=== PATIENT | male | born 1945 | race Caucasian/White ===

== ENCOUNTER → 2016-12-11 | Outpatient (CLI) | payer MEDICARE, OTHER ==
[~2016-12-11] MED LIST: ASPIRIN325 MG PO; IRBESARTAN150 MG PO; LEVOTHROID(SY175 MCG PO; NITROSTAT0.4 MG SL; PRAVACHOL40 MG PO; PRILOSEC20 MG PO; VITAMIN D1000 UNIT PO
[2016-12-11 13:14] LABS: BASOPHIL # 0.1 K/uL (0.0-0.2); BASOPHIL % 0.9 %; EOSINOPHIL # 0.2 K/uL (0.0-0.5); EOSINOPHIL % 2.7 %; HEMATOCRIT 45.1 % (37.0-53.0); HEMOGLOBIN 14.7 g/dL (11.0-16.0); IMMATURE GRANULOCYTE # 0.1 K/uL (0.0-0.3); IMMATURE GRANULOCYTE % 1.6 %; LYMPHOCYTE # 2.7 K/uL (0.8-4.0); LYMPHOCYTE % 34.8 %; MCHC 32.6 gm/dL (32.0-36.5); MONOCYTE # 0.6 K/uL (0.0-1.0); MONOCYTE % 7.2 %; MPV 9.2 fl (9.4-12.4); NEUTROPHIL % 52.8 %; NRBC % 0 /100WBC (0-0.00); PLATELET COUNT 199 K/uL (150-450); WBC 7.6 K/uL (4.0-11.0)
[2016-12-11 13:31] LABS: ALBUMIN 3.7 gm/dL (3.5-5.0); ANION GAP 10.5 (10.0-19.0); BLOOD UREA NITROGEN 11 mg/dL (6-24); CALCIUM 8.8 mg/dL (8.5-10.5); CHLORIDE 111 mMol/L (96-110); CO2 26 mMol/L (22-32); CREATININE 0.9 mg/dL (0.6-1.3); ESTIMATED GFR (MDRD EQUATION) > 60; PHOSPHORUS 2.5 mg/dL (2.5-4.9); POTASSIUM 4.5 mMol/L (3.7-5.1); SODIUM 143 mMol/L (135-145)
== END | disposition disaster alternative care site (69) ==
LOC: LCNC 12:49
PROVIDERS: Internal Medicine Interventional Cardiology
DX: R53.82 Chronic fatigue, unspecified (principal); I25.10 Atherosclerotic heart disease of native coronary artery without angina pectoris

== ENCOUNTER 2016-12-14 08:16 | Outpatient (CLI) | payer MEDICARE, OTHER ==
[~2016-12-14] VITALS: Ht 175.3 cm; Wt 126.0 kg
--- NOTE | ~2016-12-14 | CATH ---
Cardiac Diagnostic Report Demographics Patient Name KACY Starks Gender Male SR Date of 1945 Age 71 year(s) Patient Number [id number] Date of Study 12/14/2016 Visit Number [id number] Room Number G63[address] [place] [id number] Ht 175.26 cm Wt 128.8 kg Referring Cristal Sears Primary Physician Physician PA Performing Darcy Lea MD Secondary Physician Physician Diagnostic Darcy Lea MD Assisting Physician Physician Interventional Physician Supervisor [place] Physician Findings and Conclusions Diagnostic Findings and Conclusion 1 vessel CAD Diagnostic Recommendations Medical therapy. Risk factor modification. Procedure Description The patient was brought to the diagnostic cardiac catheterization-EP laboratory in the fasting, non-sedated state. Informed consent was obtained in the written and verbal form after the risks and benefits were explained. The patient had no further questions and agreed to proceed. The planned puncture-incision site(s) were shaved and prepped with ChloraPrep and draped in the usual sterile manner. Conscious sedation, supplemental oxygen, and pain control medications were delivered by a registered nurse under physician guidance. Surface ECG rhythm, blood pressure measurement, and pulse oximetry were monitored throughout the procedure. Arterial access. The access site was infiltrated with lidocaine. The vessel was entered with the Seldinger technique. A sheath was advanced into the vessel and used for catheter placement. Selective left coronary angiography. A catheter was advanced into the left coronary vessel ostium under Fluoroscopic guidance. Contrast was injected by hand. Images were obtained in multiple projections. Selective right coronary angiography. A catheter was advanced into the right coronary vessel ostium under fluoroscopic guidance. Contrast was injected by hand. Images were obtained in multiple projections. Left heart catheterization. A catheter was advanced across the aortic valve to the left ventricle under fluoroscopic guidance. Resting hemodynamics were obtained. Arterial artery hemostasis was achieved. The patient was transferred to a regular nursing floor via cart accompanied by a nurse. The patient left the laboratory in stable condition. Diagnostic Cath Status: Elective Procedure Procedure Type Diagnostic procedure:Angiography:, Coronary Angios /[facility] Indications: Positive nuclear perfusion study. The procedure was explained in detail to the patient. Risks, complications and alternative treatments were reviewed. Written consent was obtained. Medications Reviewed with Patient prior to Procedure. Angiographic Findings Dominance: Mixed Cardiac Arteries and Lesion Findings LMCA: Normal (0% Stenosis).Large. LAD: Normal (0% Stenosis).LAD large, patent stent, mid, distal normal. Diagonal medium, normal. LCx: Normal (0% Stenosis).Circumflex large normal. OM 1 and 2 small ok. OM 3 large Codominant PDA normal. RCA: RCA medium, minor plaque PL small ok Procedure Data Procedure Date Date: 12/14/2016Start: 10:35 AMEnd: 11:01 AM Entry Locations - Retrograde Percutaneous access was performed through the Right Femoral artery (Primary location). A 6 Fr sheath was inserted. Hemostasis was successfully obtained using Angio-Seal STS PLUS ([facility]). Closure Comments: deployed by prashant. Procedure Medications Order and Administration + + +-------+------+ !Time !Medication !Dosage !Route ! + + +-------+------+ !12/14/2016 10:35 AM !Versed !1 mg !I.V. ! + + +-------+------+ 12/14/2016 10:49 AM !Fentanyl !25 mcg !I.V. ! + + +-------+------+ 12/14/2016 10:32 AM !Fentanyl !25 mcg !I.V. ! + + +-------+------+ Devices Used - A6 Fr. BS JL 4 Diag. Catheterwas used for:Left coronary angiography. - A6 Fr. BS JR 4 Diag. Catheterwas used for:Right coronary angiography. - A6 Fr. BS Angled Pigtail Diag. Catheterwas used for:LV Pressures. Contrast Material - Isovue 70609 ml Fluoroscopy Time: Diagnostic: 2:36 minutes. Total: 2:36 minutes. Fluoroscopy Dose: Diagnostic: 825 mGy. Total: 825 mGy. Estimated Blood Loss: 5 ml. Medical History Allergies - ASA. Risk Factors The patient risk factors include:prior PCI on 07/08/2009;obesity, cerebrovascular disease, physical activity, hypercholesterolemia, hypertension, family history of premature CAD, last creatinine: 0.9 mg/dl, creatinine clearance: 139.14 ml/min, dyslipidemia and Current/Recent(w/in 1 year) tobacco use. Admission Data Admission Date: 12/14/2016 Admission Time: 08:16 AM Admit Source: Other Insurance Payors: Medicare. Admission Medications + +------+-------+ + + + + !Medication!Dosage!Times !Last !Last !Administered !Comments ! ! ! !Per Day!Delivery !Delivery ! ! ! ! ! ! !Date !Time ! ! ! + +------+-------+ + + + + !Aspirin ! ! ! ! ! ! ! !(any) ! ! ! ! ! ! ! + +------+-------+ + + + + !ARB (any) ! ! ! ! ! ! ! + +------+-------+ + + + + !Statin ! ! ! ! ! ! ! !(any) ! ! ! ! ! ! ! + +------+-------+ + + + + Clinical Evaluation Leading to Procedure - The patient's CAD presentation was assessed as: Unstable angina. - The patient's anginal syndrome during the past two weeks was assessed as: Class III according to the [place] Cardiovascular [employer] Classification System (CCS). Hemodynamics Condition: Rest O2 Consumption: Estimated: 267.50Heart Rate: 59 bpm Pressures (mmHg) +-----+ + !Site !Pressure ! +-----+ + !AO !118/68 (90) ! +-----+ + !AO !121/92 (100) ! +-----+ + !LV !110/6 ,16 ! +-----+ + !LV !118/8 ,18 ! +-----+ + !AO !120/64 (90) ! +-----+ + !LV !118/7 ,16 ! +-----+ + Valve Gradients and Areas + +---------+---------+---------+ +---------+ + !Valve !Peak !Mean !Area !Index !Flow !Source ! + +---------+---------+---------+ +---------+ + !Aortic !0 !0 ! ! ! ! ! + +---------+---------+---------+ +---------+ + !Aortic !0 !0 ! ! ! ! ! + +---------+---------+---------+ +---------+ + Shunts Oxygen Values O2 Capacity 199.92 O2 Consumption 267.5 Discharge Data Discharge Date: 12/14/2016 Hospital Status: Outpatient Signatures dtt: Venu Taveras (cardio) dtd: 12/14/16 1035 Physician Self Edit
[~2016-12-14 08:16] MED LIST changes: -PRILOSEC20 MG PO
[2016-12-14] MEDS ORDERED: PRILOSEC20 MG PO (11:18)
== END 2016-12-14 14:13 ==
LOC: GCAT 08:16 → GPCU 08:16 → GPOC 09:00 → GCAT 14:13
PROC: 4A023N7 Measurement of Cardiac Sampling and Pressure, Left Heart, Percutaneous Approach (ICD-10-PCS; principal; 2016-12-14)
PROC: B216YZZ Fluoroscopy of Right and Left Heart using Other Contrast (ICD-10-PCS; 2016-12-14)
DX: I25.110 Atherosclerotic heart disease of native coronary artery with unstable angina pectoris (principal); Z88.6 Allergy status to analgesic agent
CPT/HCPCS: C1760; J0583; J1644; J2001; J2250; J3010; J7030; J7060